=== PATIENT | male | born 1980 | race Caucasian/White ===

== ENCOUNTER 2016-10-22 22:48 | Emergency (ER) | payer SELFPAY ==
[~2016-10-22] VITALS: Ht 188 cm; Wt 86.2 kg
[2016-10-22 23:50] VITALS: BP 125/71
[2016-10-23] MEDS ORDERED: BACTRIM DS TAB1 EAC1 ORAL (00:05)
--- NOTE | 2016-10-23 00:05 | Emergency Room Report ---
History of Present Illness General Chief Complaint: Substance Abuse Source: Patient, EMS Present Illness HPI Is a 36-year-old male with a history of methamphetamine and GHB abuse. Patient presents initially with chief complaint of left shoulder pain. He also has generalized body pain. He said he using GHB today and felt like he overdose. He was initially unresponsive but now responsive. Complaining of sweating and body pain. Thought that he may have dislocated his left shoulder. Pain is 10 out of 10. No nausea no vomiting. No fever. No other complaint. Allergies: Coded Allergies: PHENOBARBITAL (Verified Allergy, Unknown, 10/22/16) Patient History Past Medical History: see triage record, old chart reviewed Past Surgical History: other Pertinent Family History: none Social History: Reports: alcohol use, drug use, smoking Immunizations: other Reviewed Nursing Documentation: PMH: Agreed, PSxH: Agreed Review of Systems Eye: Denies: blurred vision, eye pain ENT: Denies: ear pain, nose congestion, throat swelling Respiratory: Denies: cough, shortness of breath Cardiovascular: Denies: chest pain, palpitations Gastrointestinal: Denies: abdominal pain, diarrhea, nausea, vomiting Musculoskeletal: Reports: back pain, joint pain Skin: Denies: rash Neurological: Denies: headache, numbness Endocrine: Denies: increased thirst, increased urine Hematologic/Lymphatic: Denies: easy bruising All Other Systems: negative except mentioned in HPI Physical Exam Vital Signs Date Time Temp Pulse Resp B/P Pulse Ox O2 Delivery O2 Flow Rate FiO2 10/22/16 22:51 98.1 131 20 125/71 100 Room Air vitals with tachycardia Sp02 EP Interpretation: reviewed, normal General Appearance: well appearing, no apparent distress, alert Head: normocephalic, atraumatic Eyes: bilateral eye EOMI, bilateral eye PERRL ENT: hearing grossly normal, normal pharynx Neck: full range of motion, supple, no meningismus Respiratory: chest non-tender, lungs clear, normal breath sounds Cardiovascular #1: regular rate, rhythm, no murmur Gastrointestinal: normal bowel sounds, non tender, no mass, no organomegaly, no bruit, non-distended Musculoskeletal: back normal, gait/station normal, normal range of motion, other - Left shoulder: Clinically, no evidence of dislocation. He has full range of motion. He has tenderness over the a.c. joint. Incision normal. Neurologic: alert, oriented x3 Psychiatric: mood/affect normal Skin: warm/dry, other - He has track flores mostly in the left arm but bilaterally. He also has ulceration from skin picking. Several of them have surrounding erythema. No pus or abscess noted. He also had this on his chest. Medical Decision Making Diagnostic Impression: Primary Impression: Substance abuse Additional Impressions: Methamphetamine abuse Shoulder sprain Qualified Codes: S43.402A - Unspecified sprain of left shoulder joint, initial encounter Cellulitis Qualified Codes: L03.818 - Cellulitis of other sites ER Course Patient with substance abuse and secondary cellulitis from skin picking. Most likely secondary to methamphetamine abuse. He has no evidence of shoulder dislocation. Based on clinical exam I see no evidence of spinal epidural abscess or neoplastic process. I hear no cardiac murmur. His heart rate is now down to 100. We'll discharge home. Last Vital Signs Date Time Temp Pulse Resp B/P Pulse Ox O2 Delivery O2 Flow Rate FiO2 10/22/16 22:51 98.1 131 20 125/71 100 Room Air Status: improved Disposition: HOME, SELF-CARE Condition: Stable Scripts Trimethoprim/Sulfamethoxazole 160/800* (BACTRIM DS TABLET*) 1 Each Tablet 1 TAB ORAL Q12H, #14 TAB 0 Refills Prov: CHRIS LEAL M.D. 10/23/16 Patient Instructions: Substance Use Disorder Additional Instructions: Abstain from drugs and alcohol. Followup with rehabilitation [facility]. Followup with your DrDodie within a week. Return if worse. CHRIS LEAL M.D. Oct 23, 2016 00:05
[2016-10-23 00:15] VITALS: BP 127/75
== END 2016-10-23 00:45 | disposition home or self-care (01) ==
LOC: EDBD 22:48 → EMR 23:02
DX: F15.10 Other stimulant abuse, uncomplicated (principal); S43.402A Unspecified sprain of left shoulder joint, initial encounter; X58.XXXA Exposure to other specified factors, initial encounter; Y92.9 Unspecified place or not applicable; Y99.9 Unspecified external cause status; L03.818 Cellulitis of other sites; Z88.8 Allergy status to other drugs, medicaments and biological substances
CPT/HCPCS: 99282